=== PATIENT | female | born 1930 | race Caucasian/White ===

== ENCOUNTER 2017-01-25 13:09 | Inpatient (IN) ==
[2017-01-25 15:05] LABS: BASO% 0.4 % (0.0-0.8); EOS# 0.01 X1000 (0.0-0.7); EOS% 0.1 % (0.0-10.0); HEMATOCRIT 30.6 % (37.0-47.0); HEMOGLOBIN 10.4 g/dL (12.0-16.0); IMM GRAN% 1.6 % (0.0-0.5); LYMPH# 0.49 X1000 (1.2-3.4); LYMPH% 3.9 % (20.5-51.1); MANUAL DIFF NEEDED? NO; MCH 29.1 PG (27-31); MCV 85.5 FL (81-99); MONO# 0.82 X1000 (0.11-0.59); MONO% 6.6 % (1.7-9.3); MPV 10.8 FL (7.4-10.4); NEUT% 87.4 % (42.2-75.2); PLT 150 X1000 (130-400); RBC 3.58 XMIL (4.2-5.4)
[2017-01-25 15:26] LABS: ALBUMIN 2.3 g/dL (3.5-5.0); CALCIUM 9.5 mg/dL (8.8-10.2); POTASSIUM 4.7 mmol/L (3.5-5.1); TOTAL BILIRUBIN 0.56 mg/dL (0.20-1.00); TOTAL PROTEIN 6.2 g/dL (6.3-8.3)
[2017-01-25 15:28] LABS: ALLEN TEST YES; BE -7.6 mmoll (-3.0-3.0); BLOOD TYPE ARTERIAL; DRAW SITE R RADIAL; METHB 1.5 % (0.0-1.5); O2(CT) 18.1 mL/dL (15.0-23.0); PCO2(98.6) 22 mmHg (35-45); PO2(98.6) 93 mmHg (60-100); SAMPLE BLOOD; SAO2 99.1 % (95.0-100.0); THB 13.4 g/dL (11.5-17.4); pH(98.6) 7.43 (7.35-7.45)
[2017-01-25 15:29] LABS: MODALITY ROOM AIR
--- NOTE | 2017-01-25 15:49 | Diag Imaging Result Document ---
PROCEDURE NAME: HEAD W/O CONTRAST - 01/25/2017 CT HEAD WITHOUT CONTRAST: A dose reduction protocol was used. COMPARISON: 11/28/2016. FINDINGS: There is no evidence of hemorrhage, mass effect, or midline shift. There are chronic microvascular ischemic changes. 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 There is no indication of recent infarct, although acute infarcts may not be immediately visible. IMPRESSION: Chronic ischemic changes. No visible acute intracranial abnormality. No hemorrhage.
[2017-01-25] MEDS ORDERED: NS 1,000 ML ONE (16:14)
[2017-01-25] MEDS ORDERED: NS 1,000 ML IV ONE (16:19)
--- NOTE | 2017-01-25 16:33 | PROVIDER DOCUMENTATION ---
HPI-General Adult - General Chief Complaint: Altered Mental Status Stated Complaint: AMS Time Seen by Provider: 01/25/17 14:37 Allergies/Adverse Reactions: Patient Allergies Allergy/AdvReac Type Severity Reaction Status Date / Time No Known Allergies Allergy Verified 11/28/16 15:26 Home Medications: Home Medication List Medication Instructions Recorded Confirmed Last Taken Type Betahistine HCl [Betahistine] 4 mg PO TID 12/21/14 01/25/17 01/23/17 10:00 History 4 MG Ondansetron [Ondansetron Odt] 8 mg PO DIRECTED PRN 12/21/14 01/25/17 10:00 History 8 MG Simvastatin 40 mg PO DAILY 12/21/14 01/25/17 01/23/17 10:00 History 40 MG Megestrol Acetate [Megace Liquid] 400 mg PO BID 11/28/16 01/25/17 01/23/17 10: 00 History 400 MG Nystatin 100,000 unit PO BID 11/28/16 01/25/17 01/23/17 10:00 History [id number] UNIT Amlodipine [Norvasc] 5 mg PO DAILY #0 tablet 12/03/16 01/25/17 01/23/17 10:00 Rx 5 MG Omeprazole [Prilosec] 40 mg PO DAILY@0700 #0 capsule 12/03/16 01/25/17 01/23/17 10:00 Rx 40 MG Hydrocodone/Acetaminophen [[place] 1 tab PO BID PRN 01/25/17 01/25/17 01/23/17 16: 00 History 7.5-325 Tablet] 7.5/325 - History of Present Illness -Gen Adult Nature of Presenting Problems: A 86 y/o F with PMH of HTN who presented to ED with AMS< source of information is daughter at bedside, in last 2-3 weeks she was diagnosed with PNA and UTI and she was treated with ABX, and she was improving but in the last 2-3 days was getting progressing altered compared to her baseline, at NH was presumed to be UTI and was started on ABX with no help pt had decreased PO intake and arousable but speech was not clear no clear unilateral deficits Review of Systems - Adult - REVIEW OF SYSTEMS - ADULT ROS:: unobtainable per condition Constitutional: reports: no symptoms reported Eyes: reports: no symptoms reported Ears, Nose, Mouth & Throat: reports: no symptoms reported Cardiovascular: reports: no symptoms reported Respiratory: reports: no symptoms reported Gastrointestinal: reports: no symptoms reported Genitourinary: reports: no symptoms reported Musculoskeletal: reports: no symptoms reported Integumentary: reports: no symptoms reported Neurological: reports: no symptoms reported Psychiatric: reports: no symptoms reported Endocrine: reports: no symptoms reported Hematologic/Lymphatic: reports: no symptoms reported Allergic/Immunologic: reports: no symptoms reported All Other Systems: Reviewed and Negative Past History - Adult - PAST MEDICAL HISTORY-ADULT Review of Records: reports: Old Records Reviewed, Nursing Assessment Review, Medications Reviewed, Social history reviewed & non-contributory. Major Childhood Illnesses: reports: denies history Cardiovascular: reports: HTN, hyperlipidemia Respiratory: reports: denies history, COPD Gastrointestinal: reports: cancer (colon) Obstetrical/Gynecological: reports: denies history Genitourinary: reports: denies history Musculoskeletal: reports: denies history Neurological: reports: denies history Endocrine/Immune: reports: denies history Other Conditions: reports: denies history - PRIOR SURGERIES/PROCEDURES Surgical/Procedure History: reports: orthopedic (extremity) (bilateral hip arthroplasty), other (colon ) - IMMUNIZATION STATUS Childhood Immunizations: See Nurse Assessment Flu Vaccine: See Nurse Assessment - FAMILY HISTORY Family History: reviewed, not pertinent Physical Exam-General - PHYSICAL EXAM-ADULT Exam Limited by: AMS Initial Vital Signs Reviewed: Yes - CONSTITUTIONAL General Appearance: lethargic, slow to respond - EYES Eyes: PERRL/EOMI, pink conjunctivae, fundi clear, no AV nicking - HEAD, EARS, NOSE, MOUTH & THROAT HENMT: normocephalic/atraumatic, moist mucous membranes, normal ENT inspection, TMs normal, pharynx normal - RESPIRATORY Respiratory: chest non-tender, lungs clear, normal breath sounds, no respiratory distress - CARDIOVASCULAR Cardiovascular: normal peripheral pulses, regular rate, rhythm, no edema, no gallop, no JVD, no murmur - GASTROINTESTINAL (ABDOMEN) Abdominal Exam: normal bowel sounds, tenderness (mild suprapubic tenderenss on deep palpation). negative: abnormal bowel sounds, guarding, rigid, rebound, mass, hepatomegaly, spleenomegaly, McBurney's point tenderness, Zuluaga's sign, obturator sign - GENITOURINARY Female Genitalia/Pelvic Exam: deferred Rectal Exam: deferred - MUSCULOSKELETAL Back Exam: normal inspection Extremity: other (unable to test) - SKIN Integumentary: normal color, normal turgor - NEUROLOGIC Neurologic: other (pt not coperative unable to test) - PSYCHIATRIC Psych/Mental Status: other (arousable) Progress - PLAN OF CARE/RESULTS Progress/Plan/Lab Results: Laboratory Tests 01/25/17 01/25/17 01/25/17 14:57 14:57 14:57 WBC 12.45 H RBC 3.58 L Hgb 10.4 L Hct 30.6 L MCV 85.5 MCH 29.1 MCHC 34.0 RDW Std Deviation 16.7 H Plt Count 150 MPV 10.8 H Immature Gran % (Auto) 1.6 H Neut % (Auto) 87.4 H Lymph % (Auto) 3.9 L [place] % (Auto) 6.6 Eos % (Auto) 0.1 Baso % (Auto) 0.4 Immature Gran # (Auto) 0.20 H Neut # (Auto) 10.88 H Lymph # (Auto) 0.49 L [place] # (Auto) 0.82 H Eos # (Auto) 0.01 Baso # (Auto) 0.05 PT INR PTT (Actin FS) Specimen Type Sample Site pH pCO2 pO2 HCO3 Base Excess Oxyhemoglobin ABG O2 Sat (Calculated) ABG O2 Saturation ABG Carboxyhemoglobin ABG Methemoglobin Adolph Test A-a O2 Difference Total Hemoglobin Lactate Blood Gas Modality FiO2 % Sodium 140 Potassium 4.7 Chloride 104 Carbon Dioxide 16 L Anion Gap 20 BUN 90 H Creatinine 2.2 H Estimated GFR/1.73 m2 21 BUN/Creatinine Ratio 41 Glucose 138 H Calculated Osmolality 309 Calcium 9.5 Total Bilirubin 0.56 AST 25 ALT 33 Alkaline Phosphatase 106 H Creatine Kinase 21 L Troponin T Total Protein 6.2 L Albumin 2.3 L Globulin 3.9 Albumin/Globulin Ratio 0.6 Urine Source Urine Color Urine Turbidity Urine pH Ur Specific [place] Urine Protein Ur Glucose (Stick) Ur Ketones (Stick) Urine Blood Urine Nitrite Urine Bilirubin Urobilinogen Dipstick Urine Leukocytes Urine WBC (Auto) Urine RBC (Auto) U Epithel Cells (Auto) Urine Bacteria (Auto) Urine Opiates Screen Ur Oxycodone Screen Ur Methadone, Qual Ur Barbiturates Screen Ur Phencyclidine Scrn Ur Amphetamines Screen U Benzodiazepines Scrn Urine Cocaine Screen U Cannabinoids Screen Plasma/Serum Ethyl Alc 01/25/17 01/25/17 01/25/17 14:57 15:25 16:10 WBC RBC Hgb Hct MCV MCH MCHC RDW Std Deviation Plt Count MPV Immature Gran % (Auto) Neut % (Auto) Lymph % (Auto) [place] % (Auto) Eos % (Auto) Baso % (Auto) Immature Gran # (Auto) Neut # (Auto) Lymph # (Auto) [place] # (Auto) Eos # (Auto) Baso # (Auto) PT 10.5 INR 1.03 PTT (Actin FS) 20.3 L Specimen Type ARTERIAL Sample Site R RADIAL pH 7.43 pCO2 22 L pO2 93 HCO3 18.9 L Base Excess -7.6 L Oxyhemoglobin 95.4 ABG O2 Sat (Calculated) 18.1 ABG O2 Saturation 99.1 ABG Carboxyhemoglobin 2.20 ABG Methemoglobin 1.5 Adolph Test YES A-a O2 Difference 29.0 Total Hemoglobin 13.4 Lactate 1.10 Blood Gas Modality ROOM AIR FiO2 % 21.0 Sodium Potassium Chloride Carbon Dioxide Anion Gap BUN Creatinine Estimated GFR/1.73 m2 BUN/Creatinine Ratio Glucose Calculated Osmolality Calcium Total Bilirubin AST ALT Alkaline Phosphatase Creatine Kinase Troponin T 0.021 Total Protein Albumin Globulin Albumin/Globulin Ratio Urine Source Urine Color Urine Turbidity Urine pH Ur Specific [place] Urine Protein Ur Glucose (Stick) Ur Ketones (Stick) Urine Blood Urine Nitrite Urine Bilirubin Urobilinogen Dipstick Urine Leukocytes Urine WBC (Auto) Urine RBC (Auto) U Epithel Cells (Auto) Urine Bacteria (Auto) Urine Opiates Screen Ur Oxycodone Screen Ur Methadone, Qual Ur Barbiturates Screen Ur Phencyclidine Scrn Ur Amphetamines Screen U Benzodiazepines Scrn Urine Cocaine Screen U Cannabinoids Screen Plasma/Serum Ethyl Alc 01/25/17 01/25/17 16:55 16:55 WBC RBC Hgb Hct MCV MCH MCHC RDW Std Deviation Plt Count MPV Immature Gran % (Auto) Neut % (Auto) Lymph % (Auto) [place] % (Auto) Eos % (Auto) Baso % (Auto) Immature Gran # (Auto) Neut # (Auto) Lymph # (Auto) [place] # (Auto) Eos # (Auto) Baso # (Auto) PT INR PTT (Actin FS) Specimen Type Sample Site pH pCO2 pO2 HCO3 Base Excess Oxyhemoglobin ABG O2 Sat (Calculated) ABG O2 Saturation ABG Carboxyhemoglobin ABG Methemoglobin Adolph Test A-a O2 Difference Total Hemoglobin Lactate Blood Gas Modality FiO2 % Sodium Potassium Chloride Carbon Dioxide Anion Gap BUN Creatinine Estimated GFR/1.73 m2 BUN/Creatinine Ratio Glucose Calculated Osmolality Calcium Total Bilirubin AST ALT Alkaline Phosphatase Creatine Kinase Troponin T Total Protein Albumin Globulin Albumin/Globulin Ratio Urine Source CATH Urine Color YELLOW Urine Turbidity HAZY Urine pH 5.0 Ur Specific [place] 1.017 Urine Protein TRACE A Ur Glucose (Stick) NEGATIVE Ur Ketones (Stick) NEGATIVE Urine Blood NEGATIVE Urine Nitrite NEGATIVE Urine Bilirubin NEGATIVE Urobilinogen Dipstick NORMAL Urine Leukocytes LARGE A Urine WBC (Auto) 10-20 A Urine RBC (Auto) <10 U Epithel Cells (Auto) <10 Urine Bacteria (Auto) 4+ Urine Opiates Screen PRESUMPTIVE POSITIVE A Ur Oxycodone Screen NONE DETECTED Ur Methadone, Qual NONE DETECTED Ur Barbiturates Screen NONE DETECTED Ur Phencyclidine Scrn NONE DETECTED Ur Amphetamines Screen NONE DETECTED U Benzodiazepines Scrn NONE DETECTED Urine Cocaine Screen NONE DETECTED U Cannabinoids Screen NONE DETECTED Plasma/Serum Ethyl Alc Orders Category Date Time Status Cardiac Monitoring DIRECTED Care 01/25/17 14:37 Active DNR [Resuscitation Status] Routine Care 01/25/17 15:47 Ordered Finger Stick Blood Sugar (ED) DIRECTED Care 01/25/17 14:37 Active Meza Cath Insertion ORDERED Care 01/25/17 17:03 Active Oxygen Therapy- ED Nursing DIRECTED Care 01/25/17 14:37 Active Saline Loc NOW Care 01/25/17 14:37 Active CHEST-PORTABLE [RAD] Stat Exams 01/25/17 14:37 Taken HEAD W/O CONTRAST [CT] Stat Exams 01/25/17 14:37 Completed ABG [RESP] Routine Lab 01/25/17 15:25 Completed ALCOHOL BLOOD Stat Lab 01/25/17 14:57 Completed BLOOD CULTURE [BLDCUL] Stat Lab 01/25/17 17:41 Ordered CBC WITH ELECTRONIC DIFF [HEME] Stat Lab 01/25/17 14:57 Completed CK PROFILE [SP CHEM] Stat Lab 01/25/17 14:57 Completed COMPREHENSIVE METABOLIC PANEL [CHEM] Stat Lab 01/25/17 14:57 Completed LACTATE, PLASMA [CHEM] Stat Lab 01/25/17 17:32 Uncollected PROTIME WITH INR [COAG] Stat Lab 01/25/17 16:10 Completed PTT [COAG] Stat Lab 01/25/17 16:10 Completed TROPONIN T Stat Lab 01/25/17 14:57 Completed URINALYSIS W/POSS RFLX CULT [URINALYSIS] Stat Lab 01/25/17 16:55 Completed URINE CULTURE [RM] Stat Lab 01/25/17 17:41 Uncollected URINE DRUG SCREEN Stat Lab 01/25/17 16:55 Completed 0.9% Sodium Chloride Inj [Ns] 1,000 ml Med 01/25/17 16:14 Discontinued .ROUTE As Directed 0.9% Sodium Chloride Inj [Ns] 1,000 ml Med 01/25/17 16:19 Discontinued IV 999 mls/hr CefTRIAXONE 1 GM/NS [Rocephin 1 gm/Ns] 50 ml Med 01/25/17 17:41 Active IV NOW Pulse Oximetry Stat Oth 01/25/17 14:37 Active EKG [EKG] Stat Ther 01/25/17 14:37 Ordered Vital Signs Temp Pulse Resp BP Pulse Ox 01/25/17 14:28 72 14 83/55 98 01/25/17 13:34 98.4 F 93 H 18 124/70 98 No Known Allergies Allergy (Verified 11/28/16 15:26) Betahistine HCl [Betahistine] 4 mg PO TID 12/21/14 Ondansetron [Ondansetron Odt] 8 mg PO DIRECTED PRN 12/21/14 Simvastatin 40 mg PO DAILY 12/21/14 Megestrol Acetate [Megace Liquid] 400 mg PO BID 11/28/16 Nystatin 100,000 unit PO BID 11/28/16 Amlodipine [Norvasc] 5 mg PO DAILY #0 tablet 12/03/16 Omeprazole [Prilosec] 40 mg PO DAILY@0700 #0 capsule 12/03/16 Hydrocodone/Acetaminophen [[place] 7.5-325 Tablet] 1 tab PO BID PRN 01/25/17 I&O 01/24/17 01/25/17 01/26/17 07:59 07:59 08:59 Output Total 312 Balance -312 Laboratory 01/25/17 01/25/17 01/25/17 16:55 16:55 16:10 WBC RBC Hgb Hct MCV MCH MCHC RDW Std Deviation Plt Count MPV Immature Gran % (Auto) Neut % (Auto) Lymph % (Auto) [place] % (Auto) Eos % (Auto) Baso % (Auto) Immature Gran # (Auto) Neut # (Auto) Lymph # (Auto) [place] # (Auto) Eos # (Auto) Baso # (Auto) PT 10.5 INR 1.03 PTT (Actin FS) 20.3 L Specimen Type Sample Site pH pCO2 pO2 HCO3 Base Excess Oxyhemoglobin ABG O2 Sat (Calculated) ABG O2 Saturation ABG Carboxyhemoglobin ABG Methemoglobin Adolph Test A-a O2 Difference Total Hemoglobin Lactate Blood Gas Modality FiO2 % Sodium Potassium Chloride Carbon Dioxide Anion Gap BUN Creatinine Estimated GFR/1.73 m2 BUN/Creatinine Ratio Glucose Calculated Osmolality Calcium Total Bilirubin AST ALT Alkaline Phosphatase Creatine Kinase Troponin T Total Protein Albumin Globulin Albumin/Globulin Ratio Urine Source CATH Urine Color YELLOW Urine Turbidity HAZY Urine pH 5.0 Ur Specific [place] 1.017 Urine Protein TRACE A Ur Glucose (Stick) NEGATIVE Ur Ketones (Stick) NEGATIVE Urine Blood NEGATIVE Urine Nitrite NEGATIVE Urine Bilirubin NEGATIVE Urobilinogen Dipstick NORMAL Urine Leukocytes LARGE A Urine WBC (Auto) 10-20 A Urine RBC (Auto) <10 U Epithel Cells (Auto) <10 Urine Bacteria (Auto) 4+ Urine Opiates Screen PRESUMPTIVE POSITIVE A Ur Oxycodone Screen NONE DETECTED Ur Methadone, Qual NONE DETECTED Ur Barbiturates Screen NONE DETECTED Ur Phencyclidine Scrn NONE DETECTED Ur Amphetamines Screen NONE DETECTED U Benzodiazepines Scrn NONE DETECTED Urine Cocaine Screen NONE DETECTED U Cannabinoids Screen NONE DETECTED Plasma/Serum Ethyl Alc 01/25/17 01/25/17 01/25/17 15:25 14:57 14:57 WBC RBC Hgb Hct MCV MCH MCHC RDW Std Deviation Plt Count MPV Immature Gran % (Auto) Neut % (Auto) Lymph % (Auto) [place] % (Auto) Eos % (Auto) Baso % (Auto) Immature Gran # (Auto) Neut # (Auto) Lymph # (Auto) [place] # (Auto) Eos # (Auto) Baso # (Auto) PT INR PTT (Actin FS) Specimen Type ARTERIAL Sample Site R RADIAL pH 7.43 pCO2 22 L pO2 93 HCO3 18.9 L Base Excess -7.6 L Oxyhemoglobin 95.4 ABG O2 Sat (Calculated) 18.1 ABG O2 Saturation 99.1 ABG Carboxyhemoglobin 2.20 ABG Methemoglobin 1.5 Adolph Test YES A-a O2 Difference 29.0 Total Hemoglobin 13.4 Lactate 1.10 Blood Gas Modality ROOM AIR FiO2 % 21.0 Sodium 140 Potassium 4.7 Chloride 104 Carbon Dioxide 16 L Anion Gap 20 BUN 90 H Creatinine 2.2 H Estimated GFR/1.73 m2 21 BUN/Creatinine Ratio 41 Glucose 138 H Calculated Osmolality 309 Calcium 9.5 Total Bilirubin 0.56 AST 25 ALT 33 Alkaline Phosphatase 106 H Creatine Kinase 21 L Troponin T 0.021 Total Protein 6.2 L Albumin 2.3 L Globulin 3.9 Albumin/Globulin Ratio 0.6 Urine Source Urine Color Urine Turbidity Urine pH Ur Specific [place] Urine Protein Ur Glucose (Stick) Ur Ketones (Stick) Urine Blood Urine Nitrite Urine Bilirubin Urobilinogen Dipstick Urine Leukocytes Urine WBC (Auto) Urine RBC (Auto) U Epithel Cells (Auto) Urine Bacteria (Auto) Urine Opiates Screen Ur Oxycodone Screen Ur Methadone, Qual Ur Barbiturates Screen Ur Phencyclidine Scrn Ur Amphetamines Screen U Benzodiazepines Scrn Urine Cocaine Screen U Cannabinoids Screen Plasma/Serum Ethyl Alc 01/25/17 01/25/17 14:57 14:57 WBC 12.45 H RBC 3.58 L Hgb 10.4 L Hct 30.6 L MCV 85.5 MCH 29.1 MCHC 34.0 RDW Std Deviation 16.7 H Plt Count 150 MPV 10.8 H Immature Gran % (Auto) 1.6 H Neut % (Auto) 87.4 H Lymph % (Auto) 3.9 L [place] % (Auto) 6.6 Eos % (Auto) 0.1 Baso % (Auto) 0.4 Immature Gran # (Auto) 0.20 H Neut # (Auto) 10.88 H Lymph # (Auto) 0.49 L [place] # (Auto) 0.82 H Eos # (Auto) 0.01 Baso # (Auto) 0.05 PT INR PTT (Actin FS) Specimen Type Sample Site pH pCO2 pO2 HCO3 Base Excess Oxyhemoglobin ABG O2 Sat (Calculated) ABG O2 Saturation ABG Carboxyhemoglobin ABG Methemoglobin Adolph Test A-a O2 Difference Total Hemoglobin Lactate Blood Gas Modality FiO2 % Sodium Potassium Chloride Carbon Dioxide Anion Gap BUN Creatinine Estimated GFR/1.73 m2 BUN/Creatinine Ratio Glucose Calculated Osmolality Calcium Total Bilirubin AST ALT Alkaline Phosphatase Creatine Kinase Troponin T Total Protein Albumin Globulin Albumin/Globulin Ratio Urine Source Urine Color Urine Turbidity Urine pH Ur Specific [place] Urine Protein Ur Glucose (Stick) Ur Ketones (Stick) Urine Blood Urine Nitrite Urine Bilirubin Urobilinogen Dipstick Urine Leukocytes Urine WBC (Auto) Urine RBC (Auto) U Epithel Cells (Auto) Urine Bacteria (Auto) Urine Opiates Screen Ur Oxycodone Screen Ur Methadone, Qual Ur Barbiturates Screen Ur Phencyclidine Scrn Ur Amphetamines Screen U Benzodiazepines Scrn Urine Cocaine Screen U Cannabinoids Screen Plasma/Serum Ethyl Alc - XRAY 1 XRAY Study: Chest Impression: See EMR Report - CT/MRI 1 CT Study: Head Impression: See EMR Report - CONSULTS/PCP/HOSPITALIST Notification #1 *Consult/PCP/Hospitalist*: hospitalist Dr Paige Time Discussed: 17:47 Consult Disposition: Admit Departure - Departure Time of Disposition Order: 17:49 DIAGNOSIS: Dehydration, moderate Altered mental status, unspecified Qualifiers: Altered mental status type: unspecified Qualified Code(s): R41.82 - Altered mental status, unspecified UTI (urinary tract infection) Qualifiers: Urinary tract infection type: acute cystitis Hematuria presence: with hematuria Qualified Code(s): N30.01 - Acute cystitis with hematuria Acute renal failure Qualifiers: Acute renal failure type: unspecified Qualified Code(s): N17.9 - Acute kidney failure, unspecified Disposition: ADMITTED INPATIENT 09 Certified Medical Emergency: Emergent Condition: Stable Referrals: Isma Diaz MD [Primary Care Provider] -
[2017-01-25 16:50] LABS: INR 1.03; PROTIME 10.5 Seconds (9.2-11.7); PTT 20.3 Seconds (22.0-36.0)
[2017-01-25 17:06] LABS: URINE MICRO REVIEW NEEDED? NO; URINE SOURCE CATH
[2017-01-25 17:17] LABS: BILIRUBIN URINE NEGATIVE (NEGATIVE); BLOOD URINE NEGATIVE (NEGATIVE); COLOR YELLOW; GLUCOSE URINE NEGATIVE (NEGATIVE); LEUKOCYTES URINE LARGE (NEGATIVE); NITRITE URINE NEGATIVE (NEGATIVE); PROTEIN URINE TRACE mg/dL (NEGATIVE); SP GRAVITY URINE 1.017; TURBIDITY URINE HAZY (CLEAR); UR EPITHELIAL CELLS <10 /HPF (<10); URINE BACTERIA 4+ /HPF; URINE CULTURE NEEDED? YES; URINE RBC <10 /HPF (<10); UROBILINOGEN URINE NORMAL (NORMAL)
[2017-01-25 17:25] LABS: UR AMPHETAMINES QUAL NONE DETECTED (NONE DETECT); UR BARBITUATES QUAL NONE DETECTED (NONE DETECT); UR BENZODIAZEPIN QUAL NONE DETECTED (NONE DETECT); UR CANNABINOIDS QUAL NONE DETECTED (NONE DETECT); UR COCAINE QUAL NONE DETECTED (NONE DETECT); UR METHADONE QUAL NONE DETECTED (NONE DETECT); UR OPIATES QUAL PRESUMPTIVE POSITIVE (NONE DETECT); UR OXYCODONE QUAL NONE DETECTED (NONE DETECT); UR PCP QUAL NONE DETECTED (NONE DETECT)
[2017-01-25] MEDS ORDERED: ROCEPHIN 1 GM/NS 50 ML IV ONE (17:41)
--- NOTE | 2017-01-25 18:08 | Diag Imaging Result Document ---
PROCEDURE NAME: CHEST-PORTABLE - 01/25/2017 PORTABLE CHEST: FINDINGS: Compared to 11/28/2016. Heart size is within normal limits. There is mild subsegmental atelectasis or scarring at the left base. The remainder of the lungs appear clear. There is no pleural effusion or pneumothorax identified. IMPRESSION: Mild left basilar subsegmental atelectasis or scarring. No other evidence of acute disease.
[2017-01-25] MEDS ORDERED: VANCOMYCIN IV PER PHARMACY MISC SCH (18:21)
[2017-01-25] MEDS ORDERED: NORCO-7.5 PO PRN (18:21)
[2017-01-25] MEDS ORDERED: CLINIMIX E 4.25%-5% SOLUTION 1,000 ML IV SCH (18:21)
[2017-01-25] MEDS ORDERED: ZOFRAN ODT PO PRN (18:21)
[2017-01-25] MEDS ORDERED: MYCOSTATIN SUSP PO SCH (21:00)
[2017-01-25] MEDS ORDERED: MEGACE LIQUID PO SCH (21:00)
--- NOTE | 2017-01-25 21:13 | HISTORY AND PHYSICAL ---
CHIEF COMPLAINT: Weakness, altered mental status, dehydration. HISTORY OF PRESENT ILLNESS: Ms. Blanton is an 86-year-old female with a history of end- stage dementia, hypertension, hyperlipidemia, history of colon cancer who comes from [facility] with decreased p.o. intake, weakness, altered mental status and dehydration. Her daughter at the bedside is able to answer detailed history questions as the patient cannot verbally respond secondary to her mental status. The patient was last discharged from our service on 12/03/2016. At that time she was seen by Dr. Sierra for dysphagia at which time she had an EGD with dilation. She also had encephalopathy secondary to medications and dehydration and UTI. She discharged to [facility], over the past few weeks she has been waxing and waning in symptoms of weakness, immobility, dehydration at times requiring IV fluid hydration. Two or 3 days ago she pulled her IV out and it was unable to be reestablished and she is not really been drinking or eating much which has caused her to have a decline in mental status and mobility. There has been no reported fevers but otherwise her condition has just overall declined. When she got to the ER she had labs and diagnostics done. Head CT showed chronic changes, nothing acute. Chest x-ray shows minimal atelectasis, nothing acute. Her laboratory data was consistent with mild leukocytosis, anemia, acute kidney injury and severe protein calorie malnutrition. UA was also consistent with urinary tract infection. The patient's daughter has made her wishes known that she wants her mother to be a DNR level 1 and we also had a long discussion about palliative care. PAST MEDICAL HISTORY: 1. Dementia. 2. Hypertension. 3. Hyperlipidemia. 4. Dysphagia status post EGD dilation. 5. Chronic pain. 6. History of colon cancer. 7. Borderline diabetes. 8. Meniere disease. SURGICAL HISTORY: Partial colectomy, orthopedic rods in both femurs for fracture. SOCIAL HISTORY: Patient is , she lives at [facility]. Family is at the bedside. No history of tobacco, alcohol or drug use. FAMILY HISTORY: Noncontributory. REVIEW OF SYSTEMS: Unable to obtain. ALLERGIES: No known drug allergies. HOME MEDICATIONS: Betahistine 4 mg t.i.d., Morse 7.5 b.i.d. as needed, Megace liquid 400 mg b.i.d., nystatin 100,000 units p.o. b.i.d., ondansetron 8 mg sublingual as needed, simvastatin 40 mg daily, Norvasc 5 mg daily, Prilosec 40 mg daily. PHYSICAL EXAMINATION: VITAL SIGNS: Blood pressure is 124/70, heart rate 73, respiratory rate 18, O2 saturation 98% on room air, temperature is 98.4 degrees. GENERAL: This is a frail, elderly and chronically ill appearing 86-year-old female lying in hospital bed in no acute distress. NEUROLOGIC: The patient is awake with her eyes open and in some distress but she will not follow commands. She does move all 4 extremities. HEENT: Head is atraumatic, normocephalic. Her pupils are equal, round, reactive to light. Oral mucosa is dry. Trachea is midline. There is no JVD. CHEST: Clear to auscultation bilaterally. Diminished at the bases. CV: Regular rate and rhythm. S1-S2 is noted. No murmurs, gallops, clicks, or rubs. GI: Soft, nondistended. Bowel sounds are hypoactive. EXTREMITIES: Without edema, clubbing or cyanosis. Pulses are palpable bilaterally. DIAGNOSTIC DATA: Head CT chronic changes, nothing acute. Chest x-ray shows atelectasis nothing acute. WBC 12.45, hemoglobin 10.4, hematocrit 30.6, platelet count 150,000. INR 1.03. ABG on room air pH 7.43, CO2 22, O2 93, bicarb 18.9. Lactate 1.1, sodium 140, potassium 4.7, chloride 104, CO2 16, anion gap 20, BUN 2.2, glucose 138, calcium 9.5, total bilirubin 0.56, alkaline phosphatase 106, CK 21, troponin 0.021, albumin 2.3. Urinalysis is positive for urinary tract infection. Toxicology screen positive for opiates. ASSESSMENT AND PLAN: 1. Toxic metabolic encephalopathy: Multifactorial to include dehydration, urinary tract infection, protein calorie malnutrition, opiate use and dementia. We will treat underlying metabolic disorders with IV fluids, antibiotics and monitor her status closely. 2. Dysphagia decrease in oral intake: Unclear etiology likely multifactorial to include her urinary tract infection, possibly esophageal symptoms. We are going to check a swallowing study and possibly speak with GI. In the meantime we are going to add Clinimix IV for nutrition. 3. Acute kidney injury: Multifactorial but biggest offender is her volume status. Will continue IV fluid hydration. Avoid nephrotoxic medications and trend her creatinine. 4. Urinary tract infection: The patient has a white count of 12.45. Given the fact that she has been in the hospital and multiple nursing homes over the past few months we are going to draw cruz cultures and give her vancomycin and Merrem as she is a high risk for ESBL. We will narrow her antibiotics when cultures have returned. 5. Chronic pain. We are going to continue her pain medication. 6. Dementia: We spoke with the family at length. It will be more difficult to see her and hydrate her over time with p.o. food and water. The decision will have to be made whether or not they want to artificially feed her perhaps on now but in the future, family has agreed that they do not believe that this would be something they want to do and that palliative care has been discussed so we are going to consult inpatient palliative care and let them discuss further options with the family. Of note, she is a do not resuscitate level 1. 7. Deep vein thrombosis prophylaxis will be provided with subcu heparin given her renal failure. Further recommendations to follow. Dictated by LAZARO Calvo for Corby Bryant MD
[2017-01-25] MEDS: MERREM IV SCH (21:38)
[2017-01-25] MEDS: NS IV SCH (21:38)
[2017-01-25] MEDS ORDERED: VANCOMYCIN 1 GM/NS 250 ML IV ONE (22:00)
[2017-01-25] MEDS: HEPARIN SUBQ SCH (22:17)
[2017-01-25] MEDS ORDERED: VANCOMYCIN 1,350 MG in NS 250 ML IV ONE (23:00)
[2017-01-26] MEDS: NS IV SCH (05:18)
[2017-01-26] MEDS: MERREM IV SCH (05:18)
[2017-01-26] MEDS ORDERED: PRILOSEC PO SCH (07:00)
[2017-01-26] MEDS ORDERED: SODIUM BICARBONATE 8.4% 150 MEQ in D5W 1,000 ML IV SCH (07:30)
[2017-01-26 07:39] LABS: HEMATOCRIT 27.4 % (37.0-47.0); HEMOGLOBIN 8.9 g/dL (12.0-16.0); MCH 28.3 PG (27-31); MCHC 32.5 g/dL (33-37); MCV 87.3 FL (81-99); MPV 10.6 FL (7.4-10.4); RBC 3.14 XMIL (4.2-5.4)
[2017-01-26] MEDS: SODIUM CHLORIDE 0.9% INJ SCH (08:11)
[2017-01-26] MEDS: PROTONIX IV SCH (08:11)
[2017-01-26] MEDS ORDERED: ZOCOR PO SCH (09:00)
[2017-01-26] MEDS ORDERED: PATIENT'S OWN MED PO SCH (09:00)
[2017-01-26] MEDS: HEPARIN SUBQ SCH ×2 (09:32→20:25)
[2017-01-26] MEDS ORDERED: LEVAQUIN 500 MG in NS 100 ML IV SCH (10:15)
[2017-01-26 10:54] LABS: CALCIUM 8.3 mg/dL (8.8-10.2); POTASSIUM 3.8 mmol/L (3.5-5.1)
[2017-01-26] MEDS: ZOSYN 2.25 GM in NS 100 ML IV SCH ×2 (12:11→23:40)
[2017-01-26 12:35] LABS: UR PROT RANDOM 20.2 mg/dL
--- NOTE | 2017-01-26 14:07 | PROGRESS NOTE ---
DATE: 01/26/2017 SUBJECTIVE: The patient is very confused this morning. She does not know where she is. She does have underlying dementia. OBJECTIVE: Vital Signs: Temperature 98 degrees, blood pressure 155/65, heart rate 84, respirations 16, O2 saturations 96% on room air. General: This is a chronically ill-appearing elderly female lying in bed in no acute distress. Head: Normocephalic, atraumatic. Heart: S1, S2. Normal. Regular rate and rhythm. Lungs: Clear to auscultation bilaterally. No wheezes, no rales. No rhonchi. Abdomen: Positive bowel sounds. Soft, nontender, nondistended. Extremities: No edema. No cyanosis. No calf tenderness. Neurologic: The patient is awake but confused. She is able to move all 4 extremities. LABS: White blood cell count 9.8, hemoglobin 8.9, hematocrit 27, platelets 145, 000. Sodium 140, potassium 3.8, chloride 106, CO2 17, BUN 71, creatinine 1.6, glucose 115, phosphorus 3.7. Blood culture is growing gram-negative rods. ASSESSMENT AND PLAN: 1. Metabolic encephalopathy. Multifactorial. The patient has a urinary tract infection plus she has underlying dementia. Will continue to treat the underlying infection. So far the patient does have 1 positive blood culture. Will follow up on the results. 2. Urinary tract infection. Continue on IV antibiotic therapy. Will follow up on the urine culture results. 3. Gram negative bactermia. Continue on zosyn. 4. Acute kidney injury. Slowly improving. Continue with IV fluid hydration. 5. Metabolic acidosis. Will change the patient to a bicarbonate drip. 6. Hypertension. Controlled. 7. Nutrition. The patient does have a history of dysphasia. We will order a modified barium swallow to be done on Friday. For now the patient will remain NPO. 8. Dementia. Aware. 9. The patient is a DNR level 1. 10. Deep vein thrombosis prophylaxis. Continue on heparin 5000 units subcutaneous every 12 hours. [facility]
[2017-01-26 15:50] LABS: CALCIUM 8.5 mg/dL (8.8-10.2); POTASSIUM 3.4 mmol/L (3.5-5.1)
[2017-01-26] MEDS ORDERED: SODIUM CHLORIDE 0.9% 10 ML ONE (16:01)
[2017-01-26] MEDS: ROCEPHIN 1 GM/NS 50 ML IV SCH (16:16)
[2017-01-26] MEDS: MORPHINE IV PRN (16:17)
[2017-01-26] MEDS: POTASSIUM CHLORIDE 20 MEQ/SWI 100 ML IV SCH ×2 (17:52→20:24)
[2017-01-27] MEDS: ZOSYN 2.25 GM in NS 100 ML IV SCH ×2 (02:45→10:06)
[2017-01-27] MEDS: SODIUM BICARBONATE 8.4% 150 MEQ in D5W 1,000 ML IV SCH ×2 (03:12→20:09)
[2017-01-27 08:18] LABS: HEMATOCRIT 28.3 % (37.0-47.0); HEMOGLOBIN 9.2 g/dL (12.0-16.0); MCH 28.5 PG (27-31); MCHC 32.5 g/dL (33-37); MCV 87.6 FL (81-99); MPV 10.8 FL (7.4-10.4); RBC 3.23 XMIL (4.2-5.4)
[2017-01-27 08:22] LABS: ALBUMIN 1.8 g/dL (3.5-5.0); CALCIUM 8.6 mg/dL (8.8-10.2); POTASSIUM 4.1 mmol/L (3.5-5.1)
--- NOTE | 2017-01-27 09:57 | EKG Report ---
Test Performed on : 01/25/2017 1:49:48 PM Test Reason : cancelled in error Blood Pressure : / mmHG Vent. Rate : 094 BPM Atrial Rate : 094 BPM P-R Int : 136 ms QRS Dur : 080 ms QT Int : 320 ms P-R-T Axes : 035 -34 067 degrees QTc Int : 400 ms Normal sinus rhythm. Left axis deviation Abnormal ECG When compared with ECG of 28-NOV-2016 14:23, T wave inversion no longer evident in Anterior leads Unconfirmed Result
[2017-01-27] MEDS: PROTONIX IV SCH (10:06)
[2017-01-27] MEDS: HEPARIN SUBQ SCH ×2 (10:06→20:09)
--- NOTE | 2017-01-27 15:34 | PROGRESS NOTE ---
DATE: 01/27/2017 SUBJECTIVE: Ms. Blanton recently put in was very lethargic, dehydrated. She has not been eating much previous week. This is 86-year-old white female, history of end-stage dementia, hypertension, hyperlipidemia, history of colon cancer, comes from [facility] with decreased PO2 intake, weakness, altered mental status and dehydration, her daughter at the bedside. Able to answer questions. The patient cannot really give much history because her mental status change and cognitive decline. Patient was last discharged from our service on 12/03/2016 and at that time she seen by Dr. Sierra for dysphagia which time she has had an EGD with dilatation for esophageal stricture and this improved her swallowing. She was also having panic attacks which apparently improved at that time. She had encephalopathy due to medications and dehydration, UTI. Discharged to [facility]. Past few weeks she has been waxing and waning with symptoms of weakness and immobility, dehydration at times requiring IV hydration, 2 or 3 days ago she pulled her IV out was unable to reestablish and she was not really been drinking or eating much which caused her to have decline in mental status and mobility. Reported no fevers, no sign of discrete pain. Chest x-ray showed minimal atelectasis nothing acute. UA was consistent with urinary tract infection. Daughter made wishes of DNR level 1. PAST MEDICAL HISTORY: Once again review past medical history. 1. Dementia. 2. Hypertension. 3. Hyperlipidemia. 4. Dysphagia status post EGD 1st opted stricture with dilatation. 5. Chronic pain. 6. History of colon cancer. 7. Borderline diabetes. 8. Meniere disease. PAST SURGICAL HISTORY: Partial colectomy, orthopedic rods in both femurs for fractures in the past. EXAM: General: Today she was sleeping easy to arouse. She appears to be comfortable, no sign of respiratory labor. Vital signs: Temperature 98 degrees, pulse 99, respirations 16, blood pressure 124/57. HEENT: Pupils are equal, round, CVP less than 6 cm. Lungs: Clear in all lung osorio. Cardiovascular: Regular rhythm, rate without murmur or S3. DATA: Urine output was about 1300 mL. While white count 11,810, hematocrit 28, platelet count 192,000. Sodium 140, potassium 4.1, chloride 113, BUN 46, creatinine 1.2, phosphorus is 2.5, albumin 1.8. Note her CT of her head on admission chronic ischemic changes. No acute intracranial abnormality. Chest x-ray. Mild left basilar subsegmental atelectasis with scarring, no other evidence acute disease. ASSESSMENT AND PLAN: 1. Metabolic encephalopathy multifactorial, has urinary tract infection plus underlying dementia plus dehydration and protein calorie malnutrition. 2. Urinary tract infection. Continue present IV antibiotics. Await culture data. 3. Gram negative bacteremia assume it is related to urinary tract infection. 4. Metabolic acidosis. Patient was put on a bicarb drip. 5. Hypertension controlled. 6. Protein calorie malnutrition, just very poor p.o. intake especially last couple weeks and seeing some signs of temporal wasting and protein depletion. 7. Review of orders. She is on Rocephin 1 g daily, she is also getting Zosyn, IV fluids at 75 mL an hour. She is on heparin 5000 units subcu q.12. Her blood cultures grew gram-negative david, sensitivities pending. Her lab, electrolytes and renal function is improved from 2.2 down 1.2. Continue present fluids. She is getting normal saline at 75 mL an hour.
[2017-01-27] MEDS: ZOSYN 2.25 GM/NS 50 ML IV SCH ×3 (16:07→21:59)
[2017-01-27] MEDS: ROCEPHIN 1 GM/NS 50 ML IV SCH (17:11)
--- NOTE | 2017-01-27 17:48 | Diag Imaging Result Document ---
PROCEDURE NAME: BA SWALLOW W/VIDEO SPEECH THER - 01/27/2017 MODIFIED BARIUM SWALLOW: COMPARISON: None available. FINDINGS: There was no contrast aspiration with thin liquid or pudding consistency barium. There is a small extrinsic filling defect at the posterior aspect of the upper esophagus seen intermittently most compatible with mild cricopharyngeus hypertrophy. Limited views of the distal esophagus are grossly unremarkable. IMPRESSION: 1. Suggestion of very mild cricopharyngeus hypertrophy. No aspiration or airway penetration is appreciated. 2. Please see Speech Pathology report for full details.
[2017-01-28] MEDS: ZOSYN 2.25 GM/NS 50 ML IV SCH ×4 (03:02→21:22)
[2017-01-28] MEDS: PROTONIX IV SCH (07:31)
[2017-01-28 07:40] LABS: HEMATOCRIT 27.9 % (37.0-47.0); HEMOGLOBIN 8.9 g/dL (12.0-16.0); MCH 28.4 PG (27-31); MCHC 31.9 g/dL (33-37); MCV 89.1 FL (81-99); MPV 10.7 FL (7.4-10.4); RBC 3.13 XMIL (4.2-5.4)
[2017-01-28 07:47] LABS: ALBUMIN 1.7 g/dL (3.5-5.0); CALCIUM 8.4 mg/dL (8.8-10.2); POTASSIUM 3.5 mmol/L (3.5-5.1)
--- NOTE | 2017-01-28 08:21 | PROGRESS NOTE ---
DATE: 01/28/2017 SUBJECTIVE: She had 2 of 2 blood cultures grow out Escherichia coli that is resistant to Levaquin and sensitive to imipenem. She was resting comfortably, sleeping comfortably. She has some confusion. She is oriented to person pretty much only. OBJECTIVE: Vital Signs: Temperature 97.4 degrees, pulse 94, respirations 19, blood pressure 150/60. HEENT: Pupils are equal and round. Respiratory: Lungs are clear in all lung osorio. Cardiovascular: Regular rhythm and rate, without murmur or S3. URINE OUTPUT: 800 mL. LABORATORIES: Reviewed from yesterday. Hematocrit is stable at 28. Chemistries: Creatinine 1.2, which has come down progressively. Sodium 140, potassium 4.1, chloride 113, BUN 46, phosphorus 2.5, and albumin 1.8. ASSESSMENT AND PLAN: 1. Urinary tract infection, Escherichia coli. At the present time, she is on Zosyn. We will continue that. 2. Gram-negative bacteremia secondary to urinary tract infection. 3. Metabolic acidosis, which is improving. 4. Hypertension. Blood pressure appears well controlled. 5. Metabolic encephalopathy, multifactorial, underlying dementia. 6. She did have a modified barium swallow. She has very mild cricopharyngeal hypertrophy. No aspiration or airway fenestration was appreciated. Have advanced her to liquids and may advance her to a soft diet today, depending on how we do.
[2017-01-28] MEDS: HEPARIN SUBQ SCH ×2 (10:30→21:22)
[2017-01-28] MEDS: SODIUM BICARBONATE 8.4% 150 MEQ in D5W 1,000 ML IV SCH (12:47)
[2017-01-28] MEDS: ROCEPHIN 1 GM/NS 50 ML IV SCH (17:04)
--- NOTE | 2017-01-28 17:13 | PALLIATIVE CARE CONSULTATION ---
DATE: 01/28/2017 REQUESTING PHYSICIAN: LAZARO Calvo REASON FOR CONSULTATION: Goals of care. HISTORY OF PRESENT ILLNESS: This is an 86-year-old female with a past medical history of dementia, hypertension, hyperlipidemia, dysphagia, chronic pain, history of colon cancer and Meniere's disease. She has had multiple admissions in the last 3 months for weakness, dehydration and altered mental status. She was most recently admitted on 01/25/2017 for the same complaints. It is reported that in the week prior to this admission she was not taking in much per oral and required IV fluid hydration while in the alf. However, she pulled her IV out and it was unable to be estimated, therefore she was brought to the ER for a continued decline. While in the ED, CT of the head showed only chronic changes. Laboratory data revealed mild leukocytosis, anemia, acute kidney injury and severe protein calorie malnutrition. Currently, she is lying in the hospital bed. She is oriented to person only. Her conversation is frequently not appropriate to the situation. Her diet has been advanced to liquids today, for which she has been able to take in without any signs of dysphagia. Her daughter is at the bedside. Currently, Ms. Blanton does not appear to be in any acute distress. She is resting comfortably. The Palliative Care Team has been consulted to assist with goals of care. REVIEW OF SYSTEMS: Unable to obtain. PAST MEDICAL HISTORY: See HPI. PAST SURGICAL HISTORY: 1. Partial colectomy. 2. Orthopedic rods to bilateral femurs for fracture. SOCIAL HISTORY: Prior to this admission, she was a resident at [facility]. She is . She has 4 children, one of whom is very attentive and makes all medical decisions. Alcohol, tobacco and drug use have been denied. FAMILY HISTORY: None pertinent. PHYSICAL EXAMINATION: General: This is an elderly chronically ill-appearing, 86-year-old female who does not appear to be in any acute distress. HEENT: Atraumatic, normocephalic. Neck: Trachea is midline. Cardiovascular: Regular rate and rhythm. Pulmonary: Lung sounds are diminished. Respirations are nonlabored. Abdomen: Soft. Bowel sounds are active. Extremities: Pulses are palpable. No edema noted. IMPRESSION: This is an 86-year-old chronically ill female with a past medical history as listed above in the HPI. The Palliative Care Team was consulted to assist with goals of care. I met with Ms. Blanton's daughter to discuss goals of care. Ms. Blanton is a Do Not Resuscitate level 1. She does not have a legal power of dry house attendant. However, the daughter here at the bedside states that she is the only child that is attentive to Ms. Blanton's care. She states that she understands the progressive nature of Ms. Durons illness and has noticed a continued decline since October when she was 1st admitted for dehydration and altered mental status. She states that prior to October, Ms. Blanton was living alone. She was very functional, able to perform all of her activities of daily living. She states that the alf has suggested comfort measures and we further discussed that. However, she states that she is not sure if she wants to stop returning to the hospital when Ms. Blanton has episodes of dehydration and altered mental status. As previously mentioned, Ms. Blanton does not appear to be in any acute distress at this time. It appears that Ms. Durons dementia FAST scale is a 7A. The Palliative Care Team will continue to follow daily until discharge. Ms. Blanton's palliative performance scale is 30%. Thank you for this consultation. Dictated by LAZARO Crabtree for Jarvis Mcdonald MD
[2017-01-29] MEDS: ZOSYN 2.25 GM/NS 50 ML IV SCH ×4 (03:15→20:30)
[2017-01-29 07:59] LABS: ALBUMIN 1.8 g/dL (3.5-5.0); CALCIUM 8.4 mg/dL (8.8-10.2); POTASSIUM 3.2 mmol/L (3.5-5.1)
[2017-01-29] MEDS: PROTONIX IV SCH (09:20)
[2017-01-29] MEDS: HEPARIN SUBQ SCH ×2 (10:16→20:30)
[2017-01-29] MEDS: MORPHINE IV PRN ×2 (14:39→20:42)
[2017-01-29] MEDS: SODIUM BICARBONATE 8.4% 150 MEQ in D5W 1,000 ML IV SCH ×2 (15:07→20:30)
--- NOTE | 2017-01-29 16:26 | PROGRESS NOTE ---
DATE: 01/29/2017 SUBJECTIVE: To review, Ms. Blanton was admitted on 01/25/2017. She came in with weakness, altered mental status, dehydration. She is an 85-year-old female with a history of end-stage dementia, hypertension, hyperlipidemia, history of colon cancer. She comes from [facility] with decreased p.o. intake, weakness, altered mental status, and dehydration. Daughter is at the bedside and able to answer detailed questions. The patient cannot verbally respond secondary to mental status. Patient was last discharged from our service on 12/03/2016. At that time she saw Dr. Sierra for dysphagia and at which time she had an EGD with dilatation. She also had an encephalopathy secondary medication, dehydration, UTI. Discharged back to [facility]. Over the past few weeks though she has been waxing and waning with symptoms of weakness, immobility, dehydration and at times requiring IV hydration. Two or 3 days ago she pulled her IV out and was unable to reestablish and she has not really been drinking or eating much which caused her to have decline in mental status and mobility. There have been no reported fevers. Otherwise, her condition has just overall declined. When she got to the emergency room she had labs and diagnostics done. Head CT showed chronic changes, nothing acute. Chest x-ray shows minimal atelectasis, nothing acute. Lab data was consistent with mild leukocytosis, anemia, acute kidney injury, and severe protein calorie malnutrition. PAST MEDICAL HISTORY: Once again, review of her past medical history, dementia, hypertension, hyperlipidemia, dysphagia status post EGD, chronic pain, history of colon cancer, borderline diabetes, Meniere disease. OBJECTIVE: General: On exam today she is awake. She does at times have some discomfort that I think is mainly in her back. Family is asking for something more for pain. Vital signs: Temperature 97.6 degrees, pulse 80, respirations 20, blood pressure 150/69. HEENT: Pupils are equal and round. Lungs: Clear in all lung osorio. Kyphosis appreciated. Cardiovascular: Regular rhythm and rate without murmur or S3. Abdomen: Soft. Skin: Warm and dry. Intake and output: Urine output is above 1300 mL. LAB: White count 11,870, hematocrit 27, platelet count 257,000. Chemistry: Sodium 142, potassium 3.2, chloride 103, bicarb 31, BUN 23, creatinine 1.0, albumin is 1.7. ASSESSMENT AND PLAN: 1. Urinary tract infection, Escherichia coli. Continue on her Zosyn and IV fluids. 2. Gram-negative bacteremia secondary to urinary tract infection. 3. Metabolic acidosis, improving. 4. Hypertension. Blood pressure appears well controlled. 5. Metabolic encephalopathy, multifactorial with underlying dementia. 6. Had a modified barium swallow and it was fairly unremarkable. Continue to encourage p.o. intake. The family is requesting some pain medicine as needed and we have some morphine as needed that they can give. I think we need to consider getting the Meza catheter out in the morning and continue to work with physical therapy. We will start with physical therapy and see if we can help some with her strength, weightbearing. Continue fluids at normal saline at 75 mL an hour. She is getting ceftriaxone 1 g q.24 hours.
[2017-01-29] MEDS: ROCEPHIN 1 GM/NS 50 ML IV SCH (17:12)
[2017-01-30] MEDS: ZOSYN 2.25 GM/NS 50 ML IV SCH ×6 (04:13→23:00)
[2017-01-30] MEDS: SODIUM BICARBONATE 8.4% 150 MEQ in D5W 1,000 ML IV SCH ×2 (05:24→15:15)
[2017-01-30 08:25] LABS: ALBUMIN 1.5 g/dL (3.5-5.0); POTASSIUM 2.9 mmol/L (3.5-5.1)
[2017-01-30] MEDS: SODIUM CHLORIDE 0.9% INJ SCH (08:36)
[2017-01-30] MEDS: PROTONIX IV SCH (08:36)
[2017-01-30] MEDS: HEPARIN SUBQ SCH ×2 (08:36→19:43)
[2017-01-30] MEDS: MORPHINE IV PRN ×2 (09:56→18:19)
[2017-01-30] MEDS ORDERED: POTASSIUM CHLORIDE 60 MEQ in NS 500 ML IV ONE (10:38)
--- NOTE | 2017-01-30 11:14 | PROGRESS NOTE ---
DATE: 01/30/2017 SUBJECTIVE: Ms. Blanton is lying in bed, currently receiving care from the tech and a family member. Still some confusion. OBJECTIVE: Ms. Blanton is an 86-year-old female. She is currently receiving a bath from heating repair technician and family member. Still some confusion. PHYSICAL EXAMINATION: Vital Signs: Temperature is 98.1 degrees, heart rate 78, respirations 18, blood pressure is 140/56, and O2 is 97% on room air. Cardiovascular: S1 and S2 appreciated. No murmurs, gallops, or rubs noted. Respiratory: Lung sounds clear bilaterally. Gastrointestinal: Soft, nontender, nondistended. Positive bowel sounds 4 quadrants. Genitourinary: Meza. Neurologic: The patient is still pretty confused, still remains alert to name. LABORATORY DATA: White count 11.87, hemoglobin 8.9, hematocrit 27.9, and platelet count is 257,000. Sodium 138, potassium 2.9, BUN 18, creatinine 0.9, blood glucose was 136, and albumin was 1.1. ASSESSMENT AND PLAN: 1. Escherichia coli urinary tract infection. Continue with Zosyn and IV fluids. 2. Gram-negative bacteremia secondary to urinary tract infection. 3. Metabolic acidosis, improving, continuing with D5 with bicarbonate. 4. Hypokalemia. We will replenish with 60 mEq IV over 6 hours. We will recheck at 1700. 5. Hypertension. Blood pressure is controlled. 6. Metabolic encephalopathy, multifactorial, with underlying dementia and infection. 7. Dysphagia with decrease in oral intake. The patient did have a modified barium swallow that suggests a very mild cricopharyngeal hypertrophy, but there was no aspiration or airway penetration appreciated. The patient was placed on a clear liquid diet with advice to slowly advance with strict aspiration precautions. The patient remains on D5 drip with bicarbonate. 8. Do Not Resuscitate level 1. Palliative care team was consulted to assist with goals of care. They met with Ms. Blanton's daughter. Patient was made a Do Not Resuscitate level 1. She does have legal power of tax attorney. She does understand the progressive nature of Ms. Blanton's illness and has noticed a continued decline since October, when she was first admitted for dehydration and altered mental status. She stated prior to that Ms. Blanton was living alone, was very functional and able to perform all her ADL. She did state that the skilled nursing has suggested comfort measures; however, she states that she is not sure if she wants to stop returning to the hospital when Ms. Blanton has episodes of dehydration and altered mental status, and the Palliative Care team will continue to follow throughout her admission. DISPOSITION: The patient is likely to be here through the weekend, possibly discharged early next week. Further recommendations to follow physician evaluation. Dictated by LAZARO Dai for Adolph Dejesus MD
[2017-01-30] MEDS ORDERED: NS 250 ML ONE (16:44)
[2017-01-30] MEDS: ROCEPHIN 1 GM/NS 50 ML IV SCH (18:35)
[2017-01-30] MEDS ORDERED: VANCOMYCIN 1 GM/NS 250 ML IV SCH (23:00)
[2017-01-31] MEDS: HEPARIN SUBQ SCH ×3 (03:33→21:33)
[2017-01-31] MEDS: ZOSYN 2.25 GM/NS 50 ML IV SCH ×3 (05:55→16:44)
[2017-01-31 07:10] LABS: HEMOGLOBIN 8.4 g/dL (12.0-16.0); MCH 27.6 PG (27-31); MCHC 31.1 g/dL (33-37); MCV 88.8 FL (81-99); MPV 9.7 FL (7.4-10.4); RBC 3.04 XMIL (4.2-5.4)
[2017-01-31 07:34] LABS: CALCIUM 7.8 mg/dL (8.8-10.2); POTASSIUM 3.2 mmol/L (3.5-5.1)
[2017-01-31] MEDS: MORPHINE IV PRN ×2 (09:56→15:24)
[2017-01-31] MEDS: SODIUM CHLORIDE 0.9% INJ SCH (09:57)
[2017-01-31] MEDS: SODIUM BICARBONATE 8.4% 150 MEQ in D5W 1,000 ML IV SCH (09:57)
[2017-01-31] MEDS: PROTONIX IV SCH (09:57)
[2017-01-31] MEDS: NORCO-7.5 PO PRN (17:26)
--- NOTE | 2017-01-31 18:32 | PROGRESS NOTE ---
DATE: 01/31/2017 HISTORY OF PRESENT ILLNESS: This is an 86-year-old who came in on 01/25/2017 with history of end- stage dementia, hypertension, hyperlipidemia, history of colon cancer. Came from [facility] with decreased p.o. intake, weakness, altered mental status, and dehydration. Her daughter is at bedside. She has really not done very well here at all. She remains fairly sleepy. The family is insistent on giving IV morphine, they do not want her to hurt, but this results in her being asleep most of the day, lethargy, not able to cooperate with physical therapy. She is not eating much, poor p.o. intake. I had a long discussion with family about what are our goals of care, and I think at this point, they want to keep her comfortable and quit trying to pursue invasive treatments or aggressive treatments including physical therapy. We will keep her this weekend and see if we can get [facility] to [facility] Friday or Friday. I think we ought to stop the morphine and see about just p.o. Grimes, because right now she is very lethargic and has remained lethargic for most of the day. PAST MEDICAL HISTORY: 1. Of course recalled progressive and end-stage dementia. 2. Hypertension. 3. Hyperlipidemia. 4. Dysphagia, status post EGD dilatation. 5. Chronic pain. 6. History of colon cancer. 7. Borderline diabetes. 8. Meniere disease. PHYSICAL EXAMINATION: General Appearance: So exam today, she was resting, sleeping. She was arousable. She does not know who I am. She knows who she is, but she does not know where she is or what time it is or what is the date. Vital Signs: Temperature 98.2 degrees, pulse 80, respirations 23, blood pressure 135/53. Lungs: Are clear in all lung osorio. Cardiovascular: Regular rhythm and rate without murmur or S3. Abdomen: Soft. Skin: Is warm and dry. DIAGNOSTIC DATA: White blood cell count 16,320, hematocrit is 27, platelet count 465,000, this is lab from yesterday, sodium 138, potassium 3.2, chloride 98, bicarbonate 30, BUN 15, creatinine 0.9. The family really did not want to take the Meza catheter out. ASSESSMENT AND PLAN: 1. Escherichia coli urinary tract infection. Continue Zosyn and IV fluids. 2. Gram-negative bacteremia secondary to urinary tract infection. 3. Metabolic acidosis. Improving on D5 with bicarbonate. 4. Hypokalemia. Replenish with 20 mEq IV over 6 hours, and this has been replenished. 5. Blood pressure control. 6. Metabolic encephalopathy, multifactorial, with underlying dementia. 7. Degree of dysphagia, not eating much. We discussed about our options for feeding including PEG tube placement and nasogastric tube feeding, and they do not want to pursue either one of these. She is a do not code, do not resuscitation level 1, so we will stop the morphine and see how we do with the Grimes and proceed from there.
[2017-02-01] MEDS: SODIUM BICARBONATE 8.4% 150 MEQ in D5W 1,000 ML IV SCH ×3 (01:37→20:38)
[2017-02-01] MEDS: SODIUM CHLORIDE 0.9% INJ SCH (08:41)
[2017-02-01] MEDS: HEPARIN SUBQ SCH ×2 (08:42→20:55)
[2017-02-01] MEDS: PROTONIX IV SCH (08:42)
[2017-02-01] MEDS: NORCO-7.5 PO PRN (12:11)
[2017-02-01] MEDS: INVANZ 1 GM/NS 50 ML IV SCH (16:40)
--- NOTE | 2017-02-01 16:40 | PROGRESS NOTE ---
DATE: 02/01/2017 Ms. Blanton is awake and she is more agitated. We have held the morphine. She has had trouble voiding, her bladder is uncomfortable. Daughter is upset that she is in a semi private room. She is upset that she is uncomfortable. She realizes that we cannot give the morphine because that just knocks her out. We have agreed to try and use [place] 5 and she wants to try 5 mg. She would like to continue doing the in and out catheter because she would like to avoid putting a catheter in but if we continue to this she would like to place the Meza catheter if she needs it. She is not sure whether she wants to go for comfort care. She would like to see if mom could wake up and start eating and get a little stronger, but it is going to be very hard to keep her comfortable and do that as well and I think she understands. So spent a good amount of time talking to her and her family and I tried to get her to tell me what she was hoping for, what her plan was.Vital Signs: Temp 98.0 degrees, pulse 93, respirations 20, blood pressure 136/63. HEENT: The pupils are equal, round, reactive. Respiratory: Lungs are clear in all lung osorio. Cardiovascular: Regular rhythm and rate without murmur or S3. The urine output was greater than 600 mL. LAB: [place] [address], hematocrit is 27, platelet count 465,000. Chemistry: Sodium 138, potassium 3.2, chloride 98, bicarb 30, BUN 15, creatinine 0.9, calcium 7.8. Blood sugars have been 102, 136, 108. Albumin 1.5. To review her history, Ms. Noemi Blanton is an 86-year-old and she came in with weakness, altered mental status, dehydration. She has a history of end-stage dementia, hypertension, hyperlipidemia, history of colon cancer. Came from [facility] with decreased p.o. intake, weakness, altered mental status and dehydration. Her daughter has been followed her very closely. She was discharged from our service back on 12/03/2016. At that time she was seen by Dr. Sierra for dysphagia at which time she had EGD with dilatation. She also had encephalopathy secondary to medications and dehydration and diagnosed with a UTI. She was discharged from [facility]. Over the past few weeks she has been waxing and waning with symptoms of weakness, immobility, dehydration which required IV hydration. 2 or 3 days ago she pulled her IV out and was unable to re-establish and she has not really been drinking or eating much which has caused her to decline further. So once again review of past medical history, dementia, hypertension, hyperlipidemia, dysphagia secondary to status post EGD with dilatation and chronic pain, history of colon cancer, borderline diabetes and Meniere's disease. EXAM: Today temp 98 degrees, pulse 90, respirations 136/63. ASSESSMENT AND PLAN: 1. She has been treated in the past for E. coli urinary tract infection. White count is elevated still. She has had to have in and out catheters. I suspect we will have to put a catheter in and leave it. I suspect this is neurogenic bladder. Not able to void. She has at least 300- 400 residual every time we have straight cathed her. I think I will put her back on just Rocephin to cover to cover E. coli. She did grow out E. coli from the urine. She does have extended spectrum beta-lactam or E. coli. We will continue IV hydration and decide whether she needs Meza catheter. 2. Dementia. Aware. 3. Arthritic pain. We will try the hydrocodone, we will do the 5 mg. I am going to check some more lab again. I will supplement her potassium and we will check magnesium as well. Note that her protein calorie stores are poor, protein calorie malnutrition. See if we can get her to eat, maybe start some physical therapy back.
[2017-02-01] MEDS: POTASSIUM CHLORIDE 20 MEQ/SWI 100 ML IV SCH ×2 (18:05→20:49)
[2017-02-02 05:50] LABS: BASO% 0.2 % (0.0-0.8); EOS# 0.03 X1000 (0.0-0.7); EOS% 0.2 % (0.0-10.0); IMM GRAN% 1.4 % (0.0-0.5); LYMPH# 0.73 X1000 (1.2-3.4); LYMPH% 5.2 % (20.5-51.1); MANUAL DIFF NEEDED? YES; MCH 27.2 PG (27-31); MCHC 30.8 g/dL (33-37); MCV 88.4 FL (81-99); MONO# 0.94 X1000 (0.11-0.59); MONO% 6.7 % (1.7-9.3); MPV 9.6 FL (7.4-10.4); NEUT% 86.3 % (42.2-75.2); PLT 581 X1000 (130-400); RBC 2.94 XMIL (4.2-5.4)
[2017-02-02 06:00] LABS: LYMPHS 10 % (21-51); MONO 6 % (1-9)
[2017-02-02 06:14] LABS: AGAP 8; ALBUMIN 1.5 g/dL (3.5-5.0); ALKALINE PHOSPHATASE 140 U/L (32-104); BUN 11 mg/dL (8-22); CALCIUM 7.9 mg/dL (8.8-10.2); CHLORIDE 92 mmol/L (98-107); COSMO 267; GOT 20 U/L (10-30); GPT 10 U/L (10-36); MAGNESIUM 1.6 mg/dL (1.5-2.7); POTASSIUM 3.4 mmol/L (3.5-5.1); SODIUM 134 mmol/L (136-145); TCO2 34 mmol/L (25-35); TOTAL BILIRUBIN 0.29 mg/dL (0.20-1.00); TOTAL PROTEIN 4.8 g/dL (6.3-8.3)
[2017-02-02 06:17] LABS: FREE T4 1.23 ng/dL (0.93-1.70)
[2017-02-02] MEDS: SODIUM BICARBONATE 8.4% 150 MEQ in D5W 1,000 ML IV SCH ×2 (11:10→16:44)
[2017-02-02] MEDS: HEPARIN SUBQ SCH ×2 (11:11→20:31)
[2017-02-02] MEDS: PROTONIX IV SCH (11:11)
[2017-02-02] MEDS: SODIUM CHLORIDE 0.9% INJ SCH (11:12)
[2017-02-02 12:00] LABS: URINE CULTURE NEEDED? NO; URINE SOURCE CATH
[2017-02-02 12:09] LABS: BILIRUBIN URINE NEGATIVE (NEGATIVE); BLOOD URINE NEGATIVE (NEGATIVE); COLOR YELLOW; GLUCOSE URINE NEGATIVE (NEGATIVE); LEUKOCYTES URINE NEGATIVE (NEGATIVE); NITRITE URINE NEGATIVE (NEGATIVE); PH URINE 8.5; PROTEIN URINE 70 mg/dL (NEGATIVE); SP GRAVITY URINE 1.013; TURBIDITY URINE HAZY (CLEAR); URINE MICRO REVIEW NEEDED? YES; UROBILINOGEN URINE NORMAL (NORMAL)
[2017-02-02 12:16] LABS: UR EPITHELIAL CELLS >10 /HPF (<10); URINE BACTERIA NEGATIVE /HPF; URINE WBC <10 /HPF (<10)
[2017-02-02] MEDS: NORCO-5 PO PRN ×2 (13:33→20:31)
[2017-02-02] MEDS: INVANZ 1 GM/NS 50 ML IV SCH (16:44)
--- NOTE | 2017-02-02 17:01 | PROGRESS NOTE ---
DATE: 02/02/2017 SUBJECTIVE: Ms. Blanton is more awake. She had some soft stool. She has really not eaten much. She has been pretty comfortable through the night. They did have to do straight cath a couple more times. Right now she has just soiled the bed. Stools loose. OBJECTIVE: Vital signs: Temperature 98.4 degrees, pulse 92, respirations 20, blood pressure 136/61. Eyes: Pupils are equal, round. Lungs: Clear in all lung osorio. Cardiovascular: Regular rhythm and rate without murmur or S3. Abdomen: Soft. Skin: Warm and dry. I am not even sure she is oriented to self. She is awake, very little understanding of what is going on around her. LABORATORY: Reviewed from yesterday. Hematocrit 26, hemoglobin 8, electrolytes sodium 134, potassium 3.4, chloride 92, bicarbonate. BUN 11, creatinine 0.8, alkaline phosphatase 140. ASSESSMENT AND PLAN: 1. She has been treated in the past for Escherichia coli, extended spectrum beta-lactam resistant, so we have her on ertapenem. 2. Stools are loose. I will seen the stools for Clostridium difficile. 3. Profound progressive end-stage dementia. Just no appetite, not eating, not able to cooperate. 4. Arthritic pain, chronic. 5. Deconditioning and weakness. 6. Just not eating. Protein calorie malnutrition. The daughter would like to pursue comfort measures. She realizes that we do not have a very good realistic hope of improving with rehab and with her nutrition. She does not want a percutaneous endoscopic gastrostomy tube or feeding tube. So we will send stools off for studies. We will continue to see how we do. Right now, her pain control is just on [place] 5 mg as needed and seems to work pretty well.
[2017-02-03] MEDS: SODIUM CHLORIDE 0.9% INJ SCH (08:10)
[2017-02-03] MEDS: PROTONIX IV SCH (08:11)
[2017-02-03] MEDS: HEPARIN SUBQ SCH ×2 (08:11→21:58)
[2017-02-03] MEDS: NORCO-5 PO PRN (12:13)
[2017-02-03] MEDS ORDERED: NORCO-7.5 PO PRN (16:19)
[2017-02-03] MEDS: INVANZ 1 GM/NS 50 ML IV SCH (16:39)
[2017-02-03] MEDS: SODIUM BICARBONATE 8.4% 150 MEQ in D5W 1,000 ML IV SCH ×2 (16:40→16:51)
--- NOTE | 2017-02-03 19:12 | PROGRESS NOTE ---
DATE: 02/03/2017 SUBJECTIVE: Ms. Blanton has been very uncomfortable. She wants to go up on her [place] from 5-7.5, she is just not able to get up and cooperate and dementia is such that she is not able to cooperate with eating either. She has no appetite and daughter has just further confirmed she just wants to go for comfort measures. We put the Meza back in and we left it. OBJECTIVE: Vital signs: Temperature 98 degrees, pulse 87, respirations 19, blood pressure 109/91. HEENT: Pupils are equal, round, lungs are clear in all lung osorio. Cardiovascular: Regular rhythm and rate without murmur or S3. Abdomen: Soft. Skin: Is warm and dry. Urine output is 1250. LABORATORY: Reviewed laboratory from the . ASSESSMENT AND PLAN: 1. End-stage dementia. 2. Anorexia. 3. Incontinent of urine. 4. Marked weakness. 5. Severe protein calorie malnutrition. 6. Poor prognosis. Daughter just wants to go for comfort measures. She does not want to pursue percutaneous endoscopic gastrostomy tube or nasogastric feeding, and we will go up on her [place] to 7.5, and go for comfort. We will see if we can get her back to some of care. That is what her wishes are.
[2017-02-04] MEDS: ROXANOL CONC. LIQUID PO PRN ×3 (10:23→13:55)
[2017-02-04] MEDS: SODIUM BICARBONATE 8.4% 150 MEQ in D5W 1,000 ML IV SCH (10:23)
[2017-02-04] MEDS: SODIUM CHLORIDE 0.9% INJ SCH (10:24)
[2017-02-04] MEDS: PROTONIX IV SCH (10:24)
[2017-02-04] MEDS: HEPARIN SUBQ SCH ×2 (10:24→21:59)
--- NOTE | 2017-02-04 15:47 | PALLIATIVE CARE PROGRESS NOTE ---
DATE: 02/04/2017 SUBJECTIVE: Ms. Blanton appears to be very uncomfortable. Her daughter is at the bedside and states that she is sleeping quite a bit more since my last visit and her appetite has declined. OBJECTIVE: General: This is an 86-year-old elderly female who appears in distress at this time. HEENT: Atraumatic, normocephalic. Cardiovascular: Increased rate, regular rhythm. Pulmonary: Lung sounds are diminished. Respirations are nonlabored. Extremities: Pulses are palpable. She does have edema to bilateral lower extremities. Skin: Warm and dry. No mottling noted. ASSESSMENT AND PLAN: I have recommended Roxanol 5 mg every 2 hours as needed for pain. Mr. Blanton's daughter and I discussed comfort measures. I think the plan at this point is to discharge back to [facility] with comfort measures. Ms. Blanton is a DNR level 1. The palliative care team will continue to follow as needed. Dictated by LAZARO Crabtree for Jarvis Mcdonald MD
--- NOTE | 2017-02-04 17:41 | PROGRESS NOTE ---
DATE: 02/04/2017 She has still been in a lot of discomfort so we went up on her [place] 7.5 and she was still uncomfortable so we decided to try some morphine liquid or Roxicodone, Roxanol concentrate, and see if it would help and it seems to be working. Would like to go to [facility] tomorrow with comfort care. She would like to try and tune up the pain medicine a little more today. Right now were are giving her fluids at 75 mL/hr and I anticipate that we will stop those tomorrow. I will stop her ertapenem too today.
[2017-02-05] MEDS: SODIUM BICARBONATE 8.4% 150 MEQ in D5W 1,000 ML IV SCH ×2 (00:12→17:24)
[2017-02-05] MEDS: PROTONIX IV SCH (08:09)
[2017-02-05] MEDS: SODIUM CHLORIDE 0.9% INJ SCH (08:09)
[2017-02-05] MEDS: HEPARIN SUBQ SCH (08:09)
[2017-02-05] MEDS: ROXANOL CONC. LIQUID PO PRN ×2 (10:03→19:57)
--- NOTE | 2017-02-05 12:18 | PALLIATIVE CARE PROGRESS NOTE ---
DATE: 02/05/2017 SUBJECTIVE: Ms. Blanton was resting quietly on my arrival; however, she will awaken, and she does state that she hurts all over when asked if she is in pain. OBJECTIVE: General: This is an 86-year-old elderly female who does not appear to be in any acute distress. HEENT: Atraumatic, normocephalic. Cardiovascular: Regular rate and rhythm. Pulmonary: Lung sounds are diminished. Respirations are nonlabored. Abdomen: Soft. Extremities: Pulses are palpable. She does have edema to the bilateral lower extremities. ASSESSMENT AND PLAN: The plan continues to be that she will be discharged back to [facility] with comfort measures only. I have asked that the nursing staff give Ms. Blanton a dose of Roxanol to help alleviate her pain. Her daughter is at the bedside and states that this medicine was very effective yesterday when used for her pain. The daughter had questions regarding the natural process of decline and the dying process, and those were discussed. Ms. Blanton is a DNR level 1. It appears that her palliative performance scale is 20%. The palliative care team will continue to follow as needed. Dictated by LAZARO Crabtree for Jarvis Mcdonald MD
--- NOTE | 2017-02-05 16:57 | PROGRESS NOTE ---
DATE: 02/05/2017 SUBJECTIVE: Ms. Blanton has slept most of the day. She has not been in a whole lot of discomfort, but she has not really aroused. This morning, though, she apparently was awake and alert. She was confused and did not know where she wants. Her Meza catheter is still in place. OBJECTIVE: Vital signs: Temperature 98.4 degrees, pulse 87, respirations 15, blood pressure 138/60. HEENT: Pupils are equal, round. CVP is less than 6 cm. Lungs: Clear in all lung osorio. Cardiovascular exam: Regular rhythm and rate without murmur or S3. Abdomen: Soft. Skin: Warm and dry. : Urine output 1500 mL. LABS: Electrolytes: Potassium is a little low at 3.4. Sodium 134, chloride is 92, creatinine 0.8. This was a lab from the . ASSESSMENT AND PLAN: Continue palliative care. We are making some adjustments on her pain medicines, and hopefully she can be discharged on Friday. Reviewed her orders right now and they reaffirmed they do not want any feeding tube. No test. Getting Protonix 40 mg intravenous every 24 hours, and I think we can stop that. I think we can stop the heparin, and I will put her on a full diet. If she does wake up and wants to eat, she can.
[2017-02-06] MEDS: SODIUM BICARBONATE 8.4% 150 MEQ in D5W 1,000 ML IV SCH ×2 (06:49→22:49)
[2017-02-06] MEDS: ROXANOL CONC. LIQUID PO PRN (06:49)
--- NOTE | 2017-02-06 14:52 | PALLIATIVE CARE PROGRESS NOTE ---
DATE: 02/06/2017 SUBJECTIVE: Ms. Blanton appears much more comfortable today. She is resting during my visit. OBJECTIVE: General: This is an 86-year-old elderly female, who does not appear to be in any acute distress. HEENT: Atraumatic, normocephalic. Cardiovascular: Regular rate and rhythm. Pulmonary: Lung sounds are diminished. Respirations are nonlabored. Abdomen: Soft. Extremities: Pulses are palpable. Skin: Warm and dry. ASSESSMENT AND PLAN: The plan continues to be that she will be discharged back to [facility] with comfort measures only. As previously mentioned, Ms. Blanton appears comfortable with her current dose of Roxanol. The daughter had further questions regarding disease process and dying process; her questions were answered. Ms. Blanton's palliative performance scale remains 20%. She is a DNR level 1. The palliative care team will continue to follow as needed. Dictated by LAZARO Crabtree for Jarvis Mcdonald MD
--- NOTE | 2017-02-06 17:30 | DISCHARGE SUMMARY ---
ADMISSION DATE: 01/25/2017 DISCHARGE DATE: This is an 86-year-old, white female, who presented with weakness, altered mental status and dehydration. She has a history of end-stage dementia, hypertension, hyperlipidemia, history of colon cancer. She came in from [facility] with decreased p.o. intake, weakness, altered mental status and dehydration. Her daughter who is one of the principal caregivers is at bedside and is able to answer detailed questions. The patient was not able to understand and cooperate because of her dementia. She was discharged from this hospital 12/03/2016. At that time seeing Dr. Sierra for dysphagia and had an EGD with dilatation. She has encephalopathy probably multifactorial but secondary to medications, dehydration and UTI. Discharge from [facility]. Over the past few weeks she has been waxing and waning in symptoms of weakness and immobility, dehydration at times requiring IV hydration. 2 or 3 days ago she pulled her IV out and was unable to re-establish, not really drinking or eating much which caused her to have decline in mental status and mobility. There has been reported fevers but otherwise condition was overall just general decline. She went to the emergency room where labs and diagnostics were done. Head CT showed chronic changes, nothing acute. Chest x-ray showed minimal atelectasis nothing acute. Her lab was consistent with mild leukocytosis, anemia, acute kidney injury, severe protein calorie malnutrition, prior volume contraction. UA was consistent with urinary tract infection. Patient's daughter made it her wish she wanted to make her do not resuscitate level 1. PAST MEDICAL HISTORY: 1. End-stage dementia. 2. Hypertension. 3. Hyperlipidemia. 4. Dysphagia. 5. Chronic pain. 6. History of colon cancer. 7. Borderline diabetes. 8. Meniere's disease. PAST SURGICAL HISTORY: Partial colectomy, orthopedic rods put in both femurs for fractures. She continued to have a great deal of lethargy. They wanted comfort measures and at times wanted to give IV morphine which would make her very lethargic. She was not able to eat. She was not able to cooperate with physical therapy. Very frustrating. The daughter and I had frequent discussions about what the goals of care and she realized that she really wanted to pursue comfort measures. She was not willing to put an NG tube down or a PEG tube to ensure adequate nutrition and it felt like she was unable to cooperate with physical therapy. In fact, it was painful for her to try. She had trouble with her bladder, urinary retention and we did several and out caths in hopes to prevent a permanent catheter but eventually because of comfort we put a catheter in. She wanted to pursue comfort measures which I agreed with it and she would take just a couple sips of liquids and very little food. So the 2 terminal process most prominent are her anorexia, protein calorie malnutrition and then the end-stage dementia and now bladder retention, so hope is to send her back to [facility] with comfort care and plan to do that tomorrow. DISCHARGE MEDICATIONS: Will be as follows: We will stop the IV, stop the fluid. She will be allowed to have some [place] or Roxanol liquid 5 mg p.o. q.2 hours p.r.n.
[2017-02-07] MEDS: ROXANOL CONC. LIQUID PO PRN ×3 (07:35→14:28)
[2017-02-07 09:23] VITALS: BP 164/58
--- NOTE | 2017-02-07 14:01 | PALLIATIVE CARE PROGRESS NOTE ---
DATE: 02/07/2017 SUBJECTIVE: Ms. Blanton appears comfortable today. No signs of distress noted. OBJECTIVE: General: This is an 86-year-old elderly female, who does not appear to be in any acute distress. HEENT: Atraumatic, normocephalic. Cardiovascular: Increased rate. Regular rhythm. Pulmonary: Lung sounds are diminished. Respirations are nonlabored. Abdomen: Soft. Extremities: Pulses are palpable. She does have 2+ pitting edema to bilateral lower extremities. Skin: Warm and dry. ASSESSMENT AND PLAN: The plan continues to be that Ms. Blanton will discharge back to [facility] with comfort measures only. She is a DNR level 1. Her current dose of Roxanol appears to be effective. Ms. Blanton's daughter is at the bedside. We further discussed the disease and dying process. Palliative performance scale remains at 20%. The palliative care team will continue to follow as needed. Dictated by LAZARO Crabtree for Jarvis Mcdonald MD
[2017-02-07] MEDS: SODIUM BICARBONATE 8.4% 150 MEQ in D5W 1,000 ML IV SCH (14:27)
== END 2017-02-07 15:09 ==
LOC: ED 13:09 → EDIPHOLD 22:06 → 3N 22:22
PROVIDERS: ATTEND Emergency Medicine